=== PATIENT | female | born 1990 | race Caucasian/White ===

== ENCOUNTER 2016-11-25 07:06 | Day surgery (SDC) | payer MEDICAID ==
[~2016-11-25 07:06] MED LIST: DICLOFENAC SODI50 M1 PO; EYE DROPS15 M3 OP; FLAGYL500 M1 PO; FLEXERIL10 MG PO; GUMMI BEAR MUL1 EAC1 PO; IBUPROFEN200 MG; IBUPROFEN800 M1 PO; MINASTRIN 24 F1 EAC1 PO; MOTRIN800 MG PO; MULTIVITAMIN1 TAB PO; NO HOME MEDICATION XX; NORCO 5/325 TAB1 TAB PO; PERCOCET 5-3251 EACH PO; PERCOCET 5/3251 TAB PO; PRENATAL CAPLE1 EACH PO; PRENATAL1 EACH PO; TYLENOL PO; ZOFRAN ODT4 MG PO; ZOLOFT100 MG PO; ZOLOFT50 MG PO; [UNRECOGNIZED DRUG - OTHER] OP
[2016-11-25 08:26] LABS: HCT-HEMATOCRIT 41.8 % (34.0-49.0); HGB-HEMOGLOBIN 13.8 gm/dl (12.0-15.5); MCV (MEAN CELL VOLUME) 91.9 fl (82.0-96.0); RED CELL DISTRIBUTION WIDTH 11.6 % (12.4-16.4)
== END 2016-11-25 12:40 ==
LOC: WSU 07:06 → SHSB 07:10 → ORW 08:54 → PACU 09:56 → SHSB 10:55
PROVIDERS: Obstetrics & Gynecology
PROC: 0UB14ZZ Excision of Left Ovary, Percutaneous Endoscopic Approach (ICD-10-PCS; principal; 2016-11-25)
DX: N83.202 Unspecified ovarian cyst, left side (principal); F41.9 Anxiety disorder, unspecified; F32.9 Major depressive disorder, single episode, unspecified; J45.909 Unspecified asthma, uncomplicated; F17.210 Nicotine dependence, cigarettes, uncomplicated; Z79.899 Other long term (current) drug therapy; Z90.49 Acquired absence of other specified parts of digestive tract; Z98.890 Other specified postprocedural states
CPT/HCPCS: J1170; J7030